=== PATIENT | male | born 2000 | race Caucasian/White ===

== ENCOUNTER → 2018-05-21 | Outpatient (CLI) | payer SELFPAY ==
[~2018-05-21] MED LIST: CATHETER FLUSH 10 ML SYR IV PRN; IOHEXOL 350 MG/ML 100 ML (OMNIPAQUE 350) VIAL IV ONE; NS 50 ML (IVPB) BAG IV ONE; RECEIVED CONTRAST 20 ML VIAL IV SCH
--- NOTE | 2018-05-21 10:22 | Diagnostic Imaging Report ---
PROCEDURE: CT abdomen and pelvis with contrast. TECHNIQUE: Multiple contiguous axial images were obtained through the abdomen and pelvis after administration of intravenous contrast. INDICATION: Generalized abdominal pain. No prior imaging is available for comparison. The lung bases are clear. No discrete liver mass is identified. The gallbladder is unremarkable. No biliary ductal dilatation is identified. The pancreas and spleen are unremarkable. No adrenal mass is detected. The kidneys are unremarkable. Aorta is non-aneurysmal. No central, retroperitoneal or mesenteric lymphadenopathy is identified. Small and large bowel loops are normal caliber. The appendix is visualized in the right lower quadrant and appears unremarkable. There is no ascites. The unopacified bladder is unremarkable. The prostate is unremarkable. No pelvic lymphadenopathy is seen. Bony structures are nonacute. IMPRESSION: Unremarkable CT of the abdomen and pelvis. No acute abnormality is detected. Dictated by: Dictated on workstation # [id number]
== END ==
LOC: RAD FS 09:13
PROVIDERS: ATTEND Family Medicine
DX: R11.14 Bilious vomiting (principal); R10.84 Generalized abdominal pain
CPT/HCPCS: 74177